=== PATIENT | female | born 1960 | race Caucasian/White ===

== ENCOUNTER 2018-01-21 12:37 | Emergency (ER) | payer OTHER ==
[2018-01-21 14:09] LABS: ABS Basophils 0.1 10^3/ul (0-0.2); ABS Eosinophils 0.3 10^3/ul (0-0.6); ABS Lymphocytes 1.5 10^3/ul (1.0-4.8); ABS Monocytes 0.5 10^3/ul (0-0.8); ABS Neutrophils 5.1 10^3/ul (1.5-7.7); ABS Nucleated RBC 0 10^3/ul; Eosinophil % 3.5 % (0-6); Hematocrit 41 % (35-47); Hemoglobin 13.7 g/dl (12.0-16.0); Lymphocyte % 20.5 % (25-47); Mean Corpuscular HGB Conc 34 g/dl (31-36); Mean Corpuscular Hemoglobin 29 pg (27-31); Mean Corpuscular Volume 88 fL (80-97); Mean Platelet Volume 8.2 um3 (7.4-10.4); Nucleated Red Blood Cells % 0; Platelet Count 246 10^3/ul (150-450); Red Blood Count 4.69 10^6/ul (4.00-5.40); Red Cell Distribution Width 12 % (10.5-15); White Blood Count 7.4 10^3/ul (3.5-10.8)
--- NOTE | 2018-01-21 14:14 | RAD ---
INDICATION: RIGHT lower extremity pain and edema. COMPARISON: No relevant prior exams available on the [facility] PACS for comparison. TECHNIQUE: Berry scale, color Doppler, and spectral analysis of the deep veins of the RIGHT lower extremity. Vessel compression, phasicity, and augmentation assessed. REPORT: The RIGHT common femoral, great saphenous, profunda femoral, femoral, popliteal, and posterior tibial veins are patent. One of the peroneal veins of the catheter is well visualized and patent. The remaining peroneal calf vein is not visualized in the proximal segment limiting assessment however distally demonstrates flow on color Doppler. High-grade nonocclusive and occlusive large subcutaneous varicose veins noted at the medial proximal calf corresponding with the region of pain. Patency of the LEFT common femoral vein documented. IMPRESSION: 1. No compelling evidence for RIGHT lower extremity deep venous thrombosis. Assessment of one of the peroneal veins of the calf is limited as described. 2. Superficial thrombophlebitis medial proximal calf corresponding with the region of pain.
[2018-01-21 14:16] LABS: INR 0.95 (0.77-1.02)
[2018-01-21 14:26] LABS: EGFR Non-African American 74.5 (>60)
--- NOTE | 2018-01-21 14:50 | ED ---
Lower Extremity - HPI Summary HPI Summary: 57-year-old female presents with right calf pain for the past couple days. She has some redness to the area. No history of DVTs but has family history of such. Is nonsmoker. She is not on hormone replacement. No recent travel or surgeries. No injury to the area. Pain is worse when she tries to flex her foot. No fevers. She is diabetic. No chest pain or shortness breath. no bug bites or previous abrasions to the area. - History of Current Complaint Chief Complaint: EDExtremityLower Stated Complaint: RT LEG PAIN Time Seen by Provider: 01/21/18 14:39 Pain Intensity: 3 - Allergies/Home Medications Allergies/Adverse Reactions: Allergies Allergy/AdvReac Type Severity Reaction Status Date / Time amoxicillin Allergy Rash Verified 01/21/18 12:44 Home Medications: Home Medications Aspirin EC TAB* [Ecotrin EC Low Dose 81 MG*] 81 mg PO DAILY 01/21/18 [History Confirmed 01/21/18] Metformin ER (NF) 1,500 mg PO QAM 01/21/18 [History Confirmed 01/21/18] glipiZIDE TAB* [Glucotrol TAB*] 5 mg PO BID 01/21/18 [History Confirmed 01/21/18 ] PMH/Surg Hx/FS Hx/Imm Hx Endocrine/Hematology History: Reports: Hx Diabetes Cardiovascular History: Denies: Hx Myocardial Infarction Musculoskeletal History: Reports: Hx Arthritis - KNEES, FEET AND FINGERS, Hx Bursitis - ELBOWS?, Hx Tendonitis - ELBOWS? Sensory History: Reports: Hx Contacts or Glasses - GLASSES Denies: Hx Hearing Aid Opthamlomology History: Reports: Hx Contacts or Glasses - GLASSES - Surgical History Surgery Procedure, Year, and Place: TUBAL LIGATION- [facility]- 30 YEARS RIGHT [place] [place] Anesthesia Reactions: No Infectious Disease History: No Infectious Disease History: Reports: Hx Shingles Denies: Traveled Outside the [place] in Last 30 Days - Family History Family History: no cardiovascular issue in family lineage - Social History Alcohol Use: None Substance Use Type: Reports: None Smoking Status (MU): Never Smoked Tobacco Review of Systems Negative: Fever Negative: Chest Pain Negative: Shortness Of Breath Positive: Myalgia - right calf pain All Other Systems Reviewed And Are Negative: Yes Physical Exam Triage Information Reviewed: Yes Vital Signs On Initial Exam: Initial Vitals Temp Pulse Resp BP Pulse Ox 97.9 F 81 17 158/86 97 01/21/18 12:41 01/21/18 12:41 01/21/18 12:41 01/21/18 12:41 01/21/18 12:41 Vital Signs Reviewed: Yes Appearance: Positive: Well-Appearing Skin: Positive: Warm, Dry, Other - erythema on right calf, no warmth to touch Head/Face: Positive: Normal Head/Face Inspection Eyes: Positive: Normal, Conjunctiva Clear Respiratory/Lung Sounds: Positive: Clear to Auscultation, Breath Sounds Present Cardiovascular: Positive: Normal, RRR Musculoskeletal: Positive: Strength/ROM Intact - right calf, Other - good pulses , capillary refill<2 secs, sensation grossly intact, tenderness over erythema area. Negative: Edema Right Neurological: Positive: Normal Psychiatric: Positive: Normal Diagnostics - Vital Signs Vital Signs Temp Pulse Resp BP Pulse Ox 01/21/18 14:16 98.3 F 76 16 147/80 96 01/21/18 12:41 97.9 F 81 17 158/86 97 - Laboratory Lab Results: Lab Results 01/21/18 01/21/18 01/21/18 Range/Units 13:58 13:58 13:58 WBC 7.4 (3.5-10.8) 10^3/ul RBC 4.69 (4.00-5.40) 10^6/ul Hgb 13.7 (12.0-16.0) g/dl Hct 41 (35-47) % MCV 88 (80-97) fL MCH 29 (27-31) pg MCHC 34 (31-36) g/dl RDW 12 (10.5-15) % Plt Count 246 (150-450) 10^3/ul MPV 8.2 (7.4-10.4) um3 Neut % (Auto) 68.4 (38-83) % Lymph % (Auto) 20.5 L (25-47) % [place] % (Auto) 6.5 (0-7) % Eos % (Auto) 3.5 (0-6) % Baso % (Auto) 1.1 (0-2) % Absolute Neuts (auto) 5.1 (1.5-7.7) 10^3/ul Absolute Lymphs (auto) 1.5 (1.0-4.8) 10^3/ul Absolute Monos (auto) 0.5 (0-0.8) 10^3/ul Absolute Eos (auto) 0.3 (0-0.6) 10^3/ul Absolute Basos (auto) 0.1 (0-0.2) 10^3/ul Absolute Nucleated RBC 0 10^3/ul Nucleated RBC % 0 INR (Anticoag Therapy) 0.95 (0.77-1.02) Sodium 139 (139-145) mmol/L Potassium 3.8 (3.5-5.0) mmol/L Chloride 104 (101-111) mmol/L Carbon Dioxide 29 (22-32) mmol/L Anion Gap 6 (2-11) mmol/L BUN 20 (6-24) mg/dL Creatinine 0.79 (0.51-0.95) mg/dL Est GFR ( Amer) 95.8 (>60) Est GFR (Non-Af Amer) 74.5 (>60) BUN/Creatinine Ratio 25.3 H (8-20) Glucose 208 H (70-100) mg/dL Calcium 9.3 (8.6-10.3) mg/dL Total Bilirubin 0.40 (0.2-1.0) mg/dL AST 18 (13-39) U/L ALT 23 (7-52) U/L Alkaline Phosphatase 97 (34-104) U/L Total Protein 7.0 (6.4-8.9) g/dL Albumin 3.8 (3.2-5.2) g/dL Globulin 3.2 (2-4) g/dL Albumin/Globulin Ratio 1.2 (1-3) Result Diagrams: 01/21/18 13:58 01/21/18 13:58 Lab Statement: Any lab studies that have been ordered have been reviewed, and results considered in the medical decision making process. - Ultrasound No standard instances Ultrasound Interpretation: Positive (See Comments) - IMPRESSION: 1. No compelling evidence for RIGHT lower extremity deep venous thrombosis. Assessment of one of the peroneal veins of the calf is limited as described. 2. Superficial thrombophlebitis medial proximal calf corresponding with the region of pain. Ultrasound Interpretation Completed By: Radiologist Lower Extremity Course/Dx - Course Course Of Treatment: 57-year-old female presents with right calf pain for the past couple days. She has some redness to the area. No history of DVTs but has family history of such. Is nonsmoker. She is not on hormone replacement. No recent travel or surgeries. No injury to the area. Pain is worse when she tries to flex her foot. No fevers. She is diabetic. No chest pain or shortness breath. On exam has some erythema to right, no warmth. Neurovascular intact. Negative Homans. No edema noted. Labs within normal limits. Ultrasound shows superficial thrombophlebitis which is consistent with presentation. will have treat with ibuprofen and heat. patient understand and agrees with plan. - Diagnoses Differential Diagnosis/HQI/PQRI: Positive: Cellulitis, DVT, Phlebitis, Sprain Provider Diagnoses: Superficial thrombophlebitis Discharge - Sign-Out/Discharge Documenting (check all that apply): Discharge/Admit/Transfer - Discharge Plan Condition: Good Disposition: HOME Patient Education Materials: Superficial Thrombophlebitis (ED) Referrals: Jessica Martinez MD [Primary Care Provider] - Additional Instructions: Place heat on the area elevate Take ibuprofen every 6 hours use compression socks Follow up with primary if no improvement in 2 weeks Return to ED if develop any new or worsening symptoms - Billing Disposition and Condition Condition: GOOD Disposition: Home
[2018-01-21 15:00] VITALS: BP 129/54
== END 2018-01-21 15:10 | disposition home or self-care (01) ==
LOC: ED 12:37
DX: I80.01 Phlebitis and thrombophlebitis of superficial vessels of right lower extremity (principal); E11.9 Type 2 diabetes mellitus without complications; Z79.84 Long term (current) use of oral hypoglycemic drugs; M17.0 Bilateral primary osteoarthritis of knee; M19.072 Primary osteoarthritis, left ankle and foot; M19.071 Primary osteoarthritis, right ankle and foot; M19.049 Primary osteoarthritis, unspecified hand; Z88.0 Allergy status to penicillin
CPT/HCPCS: 36415; 80053; 85025; 85610; 99282